=== PATIENT | female | born 1965 | race African-American/Black ===

== ENCOUNTER 2017-02-02 19:10 | Emergency (ER) | payer OTHER ==
[2017-02-02 19:15] VITALS: BP 159/87; PULSE 89; TEMP 98; BMI 37.3
[2017-02-02] MEDS ORDERED: NAPROXEN 500 MG TABLET (FP) PO ONE (19:39)
--- NOTE | 2017-02-02 19:46 | PDOC ---
History of Present Illness - General Chief Complaint: Pain Stated Complaint: LEG PAIN Time Seen by Provider: 02/02/17 19:33 History Source: Patient Exam Limitations: No Limitations - History of Present Illness Initial Comments: 02/02/17 19:38 51 yr female histoy of HTN states she was walking down the steps yesterday and her right knee "gave out" causing pain. Pt has had pain and tightness to calf and behind the knee today with knee pain. 02/02/17 19:47 Past History - Past Medical History Allergies/Adverse Reactions: Allergies Allergy/AdvReac Type Severity Reaction Status Date / Time No Known Allergies Allergy Verified 02/02/17 19:12 Home Medications: Ambulatory Orders Cholecalciferol (Vitamin D3) [Vitamin D] 5,000 unit PO DAILY 01/08/13 Flaxseed Oil 1,000 mg PO DAILY 01/08/13 Iron Polysaccharide Complex [Iferex 150] 150 mg PO DAILY 01/08/13 Multivitamin [Multivitamins] 1 each PO DAILY 01/08/13 Losartan/Hydrochlorothiazide [Losartan-Hctz 50-12.5 mg Tab] 1 each PO ASDIR 03/13 Naproxen [Naprosyn -] 500 mg PO BID PRN #14 tablet 02/02/17 Anemia: Yes Asthma: No Cancer: No Cardiac Disorders: No CVA: No COPD: No CHF: No Dementia: No Diabetes: No GI Disorders: No Disorders: No HTN: Yes Hypercholesterolemia: No Liver Disease: No Seizures: No Thyroid Disease: No - Surgical History Abdominal Surgery: Yes (GASTRIC BYPASS-APPROX 1999) Appendectomy: No Cardiac Surgery: No Cholecystectomy: No Lung Surgery: No Neurologic Surgery: No Orthopedic Surgery: Yes (LIGAMENT LEFT FOOT REPAIRED) - Psycho/Social/Smoking Cessation Hx Anxiety: No Suicidal Ideation: No Smoking Status: No Smoking History: Never smoked Have you smoked in the past 12 months: No Number of Cigarettes Smoked Daily: 0 Information on smoking cessation initiated: No Hx Alcohol Use: No Drug/Substance Use Hx: No Substance Use Type: Alcohol Hx Substance Use Treatment: No Review of Systems - Review of Systems Able to Perform ROS?: Yes Is the patient limited Kuwaiti proficient: No Constitutional: No: Symptoms Reported Musculoskeletal: Yes: Symptoms Reported *Physical Exam - Vital Signs Last Vital Signs Temp Pulse Resp BP Pulse Ox 98 F 89 18 159/87 100 02/02/17 19:12 02/02/17 19:12 02/02/17 19:12 02/02/17 19:12 02/02/17 19:12 - Physical Exam General Appearance: Yes: Nourished, Appropriately Dressed, Obese HEENT: positive: EOMI, DEVONTE Neck: positive: Supple. negative: Tender Respiratory/Chest: positive: Lungs Clear, Normal Breath Sounds Cardiovascular: positive: Regular Rhythm, Regular Rate Extremity: positive: Normal Capillary Refill, Normal Range of Motion, Tender ( popliteal right knee , mild ttp proximal calf , neg bony tenderness ) Integumentary: positive: Normal Color, Dry, Warm Neurologic: positive: Fully Oriented, Alert, Normal Mood/Affect, Normal Response , Motor Strength 10/29 ED Treatment Course - RADIOLOGY Radiology Studies Ordered: Category Date Time Status KNEE 3 POS-RIGHT [RAD] Stat Radiology 02/02/17 19:37 Ordered DUPLEX VASCUL US-1 LEG [US] Stat Ultrasound 02/02/17 19:37 Ordered Medical Decision Making - Medical Decision Making 02/02/17 19:40 cc: knee pain , calf tightness and apin after knee "gave out" while walking down the stairs yesterday pt states the knee continues to cause pain will get xray to r/o dislocation US to r/o DVT or bakers cyst will give naproysn for pain 02/02/17 19:47 *DC/Admit/Observation/Transfer Diagnosis at time of Disposition: Strain of knee and leg, right Qualifiers: Encounter type: initial encounter Qualified Code(s): S86.911A - Strain of unspecified muscle(s) and tendon(s) at lower leg level, right leg, initial encounter - Discharge Dispostion Disposition: HOME Condition at time of disposition: Stable - Prescriptions Prescriptions: Naproxen [Naprosyn -] 500 mg PO BID PRN #14 tablet PRN Reason: Pain - Referrals Referrals: Martin Olson MD [Primary Care Provider] - - Patient Instructions Additional Instructions: follow with the orthopedist or for follow up in one week apply frequent warm compresses to the back of the knee take naprosyn as directed for pain - Post Discharge Activity Work/School Note: Back to Work
[2017-02-02] MEDS ORDERED: NAPROXEN 500 MG TABLET (FP) ONE (20:04)
--- NOTE | 2017-02-02 20:29 | PDOC ---
*Physical Exam - Vital Signs Last Vital Signs Temp Pulse Resp BP Pulse Ox 98 F 89 18 159/87 100 02/02/17 19:12 02/02/17 19:12 02/02/17 19:12 02/02/17 19:12 02/02/17 19:12 ED Treatment Course - Medications Given in the ED: ED Medications Discontinued Medications Generic Name Dose Route Start Last Admin Trade Name Freq PRN Reason Stop Dose Admin Naproxen 500 mg 02/02/17 19:39 02/02/17 20:05 Naprosyn - PO 02/02/17 19:40 500 mg ONCE ONE Administration Medical Decision Making - Medical Decision Making 02/02/17 20:24 asked by OSKAR Faye to follow US and Knee xray= no DVT; No *DC/Admit/Observation/Transfer Diagnosis at time of Disposition: Strain of right knee and leg Qualifiers: Encounter type: initial encounter Qualified Code(s): S86.911A - Strain of unspecified muscle(s) and tendon(s) at lower leg level, right leg, initial encounter - Discharge Dispostion Disposition: HOME Condition at time of disposition: Stable Admit: No - Prescriptions Prescriptions: Naproxen [Naprosyn -] 500 mg PO BID PRN #14 tablet PRN Reason: Pain - Referrals Referrals: Martin Olson MD [Primary Care Provider] - - Patient Instructions Additional Instructions: follow with the orthopedist or for follow up in one week apply frequent warm compresses to the back of the knee take naprosyn as directed for pain - Post Discharge Activity Work/School Note: Back to Work
== END 2017-02-02 20:37 | disposition home or self-care (01) ==
LOC: JERFT 19:10
DX: S86.911A Strain of unspecified muscle(s) and tendon(s) at lower leg level, right leg, initial encounter (principal)
CPT/HCPCS: 73562-TC-RT; 93971-TC; 99281-25

== ENCOUNTER 2017-02-08 08:36 | Emergency (ER) | payer OTHER ==
[2017-02-08 08:47] VITALS: TEMP 98.3; BMI 40.1
[2017-02-08 09:47] LABS: EOSINOPHIL 3.3 % (0-4.5); MCH 25.9 pg (25.7-33.7); MCHC 31.8 g/dl (32.0-36.0); MEAN CELL VOLUME 81.4 fl (80-96); MEAN PLT VOLUME 7.4 fl (7.5-11.1); NEUTROPHILS 56.6 % (42.8-82.8); PLATELET COUNT 356 K/MM3 (134-434); RDW 16.6 % (11.6-15.6); WHITE BLOOD COUNT 8.4 K/mm3 (4.0-10.0)
[2017-02-08 10:07] LABS: INR 1.07 (0.82-1.09); PROTHROMBIN TIME (PATIENT) 11.8 SEC (9.98-11.88)
[2017-02-08 10:21] LABS: ALBUMIN 3.4 g/dl (3.4-5.0); ANION GAP 7 (8-16); CALCIUM 8.8 mg/dL (8.5-10.1); CO2 29 mmol/L (21-32); CREATININE 0.8 mg/dL (0.55-1.02); GLUCOSE,RANDOM 82 mg/dL (74-106); SGOT/AST 11 U/L (15-37); SGPT/ALT 24 U/L (12-78)
[2017-02-08] MEDS ORDERED: KETOROLAC TROMETHAMINE 15 MG/ML VIAL IVPUSH ONE (10:22)
[2017-02-08 10:28] LABS: ALK PHOS 123 U/L (45-117); BILIRUBIN,TOTAL 0.3 mg/dL (0.2-1.0); CPK 154 IU/L (26-192); TOT PROT 6.7 g/dl (6.4-8.2); TROPONIN I < 0.02 ng/ml (0.00-0.05)
--- NOTE | 2017-02-08 11:02 | PDOC ---
History of Present Illness <Susy Sal - Last Filed: 02/08/17 11:22> <Jonah Leavitt - Last Filed: 02/08/17 14:33> - General Chief Complaint: Chest Pain Stated Complaint: CHEST PAIN Time Seen by Provider: 02/08/17 09:45 - History of Present Illness Initial Comments: 02/08/17 10:57 "The patient is a year old 51 year old female, with a significant past medical history of hypertension, who presents to the emergency department with sudden onset chest pain since last night around 12am. Patient reports that pain is exacerbated by movement. She describes her chest pain as sharp and states that it does not radiate. She rates her pain 8/10. She states she did not take any medication to relieve the pain. She denies similar symptoms in the past. No recent travel/immobilization. No leg swelling. No h/o DVT/PE. She denies numbness, tingling. She denies shortness of breath.She denies recent fevers, chills, headache or dizziness. She denies recent nausea, vomit, diarrhea or constipation. She denies recent dysuria, frequency, urgency or hematuria. Allergies: NKA Past surgical history: Gastric bypass 10 years ago, benign breast mass removal, left ankle surgery(1.5 years ago). Social history: Nonsmoker. Denies EtOH use and recreational drug use. Family History:paternal hypertension. [place] (aunt at 60yrs). " (DagmarJonah) Past History <Susy Sal - Last Filed: 02/08/17 11:22> - Past Medical History Anemia: Yes Asthma: No Cancer: No Cardiac Disorders: No CVA: No COPD: No CHF: No Dementia: No Diabetes: No GI Disorders: No Disorders: No HTN: Yes Hypercholesterolemia: No Liver Disease: No Seizures: No Thyroid Disease: No - Surgical History Abdominal Surgery: Yes (GASTRIC BYPASS-APPROX 1999) Appendectomy: No Cardiac Surgery: No Cholecystectomy: No Lung Surgery: No Neurologic Surgery: No Orthopedic Surgery: Yes (LIGAMENT LEFT FOOT REPAIRED) - Psycho/Social/Smoking Cessation Hx Anxiety: No Suicidal Ideation: No Smoking Status: No Smoking History: Never smoked Have you smoked in the past 12 months: No Number of Cigarettes Smoked Daily: 0 Information on smoking cessation initiated: No Hx Alcohol Use: No Drug/Substance Use Hx: No Substance Use Type: Alcohol Hx Substance Use Treatment: No <Jonah Leavitt - Last Filed: 02/08/17 14:33> - Past Medical History Allergies/Adverse Reactions: Allergies Allergy/AdvReac Type Severity Reaction Status Date / Time No Known Allergies Allergy Verified 02/08/17 08:44 Home Medications: Ambulatory Orders Cholecalciferol (Vitamin D3) [Vitamin D] 5,000 unit PO DAILY 01/08/13 Flaxseed Oil 1,000 mg PO DAILY 01/08/13 Iron Polysaccharide Complex [Iferex 150] 150 mg PO DAILY 01/08/13 Multivitamin [Multivitamins] 1 each PO DAILY 01/08/13 Losartan/Hydrochlorothiazide [Losartan-Hctz 50-12.5 mg Tab] 1 each PO ASDIR 03/13 Naproxen [Naprosyn -] 500 mg PO BID PRN #14 tablet 02/02/17 Cardiac Specific PMH - Complaint Specific PMHX Pacemaker: No <DagmarJonah - Last Filed: 02/08/17 14:33> Review of Systems <Susy Sal - Last Filed: 02/08/17 11:22> <DagmarJonah - Last Filed: 02/08/17 14:33> - Review of Systems Comments:: 02/08/17 10:59 "GENERAL/CONSTITUTIONAL: No fever or chills. No weakness. HEAD, EYES, EARS, NOSE AND THROAT: No change in vision. No ear pain or discharge. No sore throat. GASTROINTESTINAL: No nausea, vomiting, diarrhea or constipation. GENITOURINARY: No dysuria, frequency, or change in urination. CARDIOVASCULAR: +chest pain. No shortness of breath. RESPIRATORY: No cough, wheezing, or hemoptysis. MUSCULOSKELETAL: No joint or muscle swelling or pain. No neck or back pain. SKIN: No rash NEUROLOGIC: No headache, vertigo, loss of consciousness, or change in strength/ sensation. ENDOCRINE: No increased thirst. No abnormal weight change. HEMATOLOGIC/LYMPHATIC: No anemia, easy bleeding, or history of blood clots. ALLERGIC/IMMUNOLOGIC: No hives or skin allergy. " (Jonah Leavitt) - Vital Signs Last Vital Signs Temp Pulse Resp BP Pulse Ox 98.3 F 87 18 149/76 100 02/08/17 08:44 02/08/17 08:44 02/08/17 08:44 02/08/17 08:44 02/08/17 09:40 Heart Score/ECG Review <OjnelleSusy vu - Last Filed: 02/08/17 11:22> - History History: Slightly suspicious - Electrocardiogram EKG: Non specific repolarization disturbance - Age Age: 45-65 - Risk Factors Risk Factors Heart Score: Yes Hx Hypertension Based on the list above the patient has:: 1-2 risk factors - Troponin Troponin: </= normal limit - Score Heart Score - Total: 3 <Jonah Leavitt - Last Filed: 02/08/17 14:33> - ECG Impressions Comment:: 02/08/17 11:00 no BRADY, sub-mm STDs in inferior leads. TWI inferiorly. Intervals wnl. Rate 83 ( Jonah Leavitt) ED Treatment Course - LABORATORY CBC & Chemistry Diagram: 02/08/17 09:35 02/08/17 09:35 <Susy Sal - Last Filed: 02/08/17 11:22> - LABORATORY CBC & Chemistry Diagram: 02/08/17 09:35 02/08/17 09:35 <Jonah Leavitt - Last Filed: 02/08/17 14:33> - ADDITIONAL ORDERS Additional order review: Laboratory Results 02/08/17 02/08/17 02/08/17 13:00 09:35 09:35 INR 1.07 Sodium 140 Potassium 3.9 Chloride 104 Carbon Dioxide 29 Anion Gap 7 L BUN 16 D Creatinine 0.8 D Creat Clearance w eGFR > 60 Random Glucose 82 Calcium 8.8 Total Bilirubin 0.3 D AST 11 L D ALT 24 Alkaline Phosphatase 123 H D Creatine Kinase 151 154 Creatine Kinase Index 1.0 CK-MB (CK-2) 1.715 Troponin I < 0.02 < 0.02 Total Protein 6.7 Albumin 3.4 02/08/17 09:35 RBC 4.03 MCV 81.4 MCHC 31.8 L RDW 16.6 H MPV 7.4 L Neutrophils % 56.6 Lymphocytes % 31.6 Monocytes % 7.5 Eosinophils % 3.3 Basophils % 1.0 - RADIOLOGY Radiology Studies Ordered: Category Date Time Status CHEST PA & LAT [RAD] Stat Radiology 02/08/17 09:29 Completed Radiograph Interpretation: 02/08/17 11:21 Chest X-Ray Reported by Dr. Arcenio Meek Impression: No acute pathology. No significant change. (Susy Sal) - Medications Given in the ED: ED Medications Discontinued Medications Generic Name Dose Route Start Last Admin Trade Name Rosanne PRN Reason Stop Dose Admin Ketorolac Tromethamine 15 mg 02/08/17 10:22 02/08/17 11:22 Toradol Injection - IVPUSH 02/08/17 10:23 15 mg ONCE ONE Administration Medical Decision Making <Susy Sal - Last Filed: 02/08/17 11:22> <Jonah Leavitt - Last Filed: 02/08/17 14:33> - Medical Decision Making 02/08/17 11:00 51 F with atypical chest pain. Likely msk as pain is in chest wall and reproducible with palpation. EKG with TWIs inferiorly, but pt's story not concerning for ACS. Will r/o with serial troponins. HEART score is 3, making pt low risk for MACE. PE unlikely as wells score is 0. - Labs, trop - CXR 02/08/17 14:16 Trop negative x2 pt reassessed - states she feels much better with toradol. Will DC home with cards f/u. (Jonah Leavitt) *DC/Admit/Observation/Transfer <Susy Sal - Last Filed: 02/08/17 11:22> - Discharge Dispostion Admit: No <Jonah Leavitt - Last Filed: 02/08/17 14:33> Diagnosis at time of Disposition: Chest pain - Referrals Referrals: Martin Olson MD [Primary Care Provider] - Srinivas Cook MD [Staff Physician] - - Patient Instructions Printed Discharge Instructions: DI for Atypical Chest Pain Additional Instructions: Call the number provided to make an appointment with cardiology clinic within 1 month. You must follow up with a donation worker regarding your abnormal EKG. This could represent heart disease, which, if left untreated, could result in serious illness, disability, or . - Post Discharge Activity Work/School Note: Back to Work - Attestations Scribe Attestion: 02/08/17 11:22 Documentation prepared by Susy Sal, acting as medical chief technician for Jonah Leavitt MD. (Susy Sal) Physician Attestion: 02/08/17 14:19 I, Dr. Jonah Leavitt MD, attest that this document has been prepared under my direction and personally reviewed by me in its entirety. I further attest, that it accurately reflects all work, treatment, procedures and medical decision -making performed by me. (Jonah Leavitt)
--- NOTE | 2017-02-08 11:10 | EKG ---
Test Reason : Blood Pressure : / mmHG Vent. Rate : 083 BPM Atrial Rate : 083 BPM P-R Int : 156 ms QRS Dur : 106 ms QT Int : 388 ms P-R-T Axes : 058 055 004 degrees QTc Int : 455 ms NORMAL SINUS RHYTHM POSSIBLE LEFT ATRIAL ENLARGEMENT .INCOMPLETE RBBB NONSPECIFIC ST AND T WAVE ABNORMALITY ABNORMAL ECG WHEN COMPARED WITH ECG OF 08-JUL-2011 10:18, ST-T ABNORMALITIES IN III aVF REPEAT EKG IF CLINICALLY INDICATED Confirmed by FELICITA LUDWIG MD ([id number]) on 02/08/2017 11:10:04 AM Referred By: Confirmed By:FELICITA LUDWIG MD
[2017-02-08] MEDS ORDERED: KETOROLAC TROMETHAMINE 15 MG/ML VIAL ONE (11:40)
[2017-02-08 13:35] LABS: CPK 151 IU/L (26-192); TROPONIN I < 0.02 ng/ml (0.00-0.05)
[2017-02-08 14:39] VITALS: BP 137/74; PULSE 75
== END 2017-02-08 14:40 | disposition home or self-care (01) ==
LOC: JER 08:36
PROC: 3E0333Z Introduction of Anti-inflammatory into Peripheral Vein, Percutaneous Approach (ICD-10-PCS; principal; 2017-02-08)
DX: R07.9 Chest pain, unspecified (principal); I10 Essential (primary) hypertension; D64.9 Anemia, unspecified; Z98.84 Bariatric surgery status
CPT/HCPCS: 36415; 71020-TC; 80053; 82553; 84484; 85025; 85610; 93005; 93010; 99283-25

== ENCOUNTER 2017-07-23 23:10 | Emergency (ER) | payer OTHER ==
[2017-07-23 23:30] VITALS: BP 141/78; PULSE 92; TEMP 98.4; BMI 40.1
--- NOTE | 2017-07-24 01:04 | PDOC ---
History of Present Illness - General Chief Complaint: Pain Stated Complaint: C/O LOWER EXTREMITY CRAMPING Time Seen by Provider: 07/24/17 00:26 - History of Present Illness Initial Comments: 07/24/17 06:35 hx of htn c/o leg cramps intermittently x months Timing/Duration: intermittent, other (x months) Severity: moderate Modifying Factors: improves with: medication Associated Symptoms: denies: fever/chills, nausea/vomiting Past History - Past Medical History Allergies/Adverse Reactions: Allergies Allergy/AdvReac Type Severity Reaction Status Date / Time No Known Allergies Allergy Verified 02/08/17 08:44 Home Medications: Ambulatory Orders Naproxen [Naprosyn -] 500 mg PO BID PRN #14 tablet 02/02/17 Diltiazem HCl [Diltiazem ER] 360 mg PO DAILY 07/23/17 Potassium Chloride 20 meq PO BID 07/23/17 Valsartan/Hydrochlorothiazide [Valsartan-Hctz 320-25 mg Tab] 1 each PO DAILY Anemia: Yes Asthma: No Cancer: No Cardiac Disorders: No CVA: No COPD: No CHF: No Dementia: No Diabetes: No GI Disorders: No Disorders: No HTN: Yes Hypercholesterolemia: No Liver Disease: No Seizures: No Thyroid Disease: No - Surgical History Abdominal Surgery: Yes (GASTRIC BYPASS-APPROX 1999) Appendectomy: No Cardiac Surgery: No Cholecystectomy: No Lung Surgery: No Neurologic Surgery: No Orthopedic Surgery: Yes (LIGAMENT LEFT FOOT REPAIRED) - Suicide/Smoking/Psychosocial Hx Smoking Status: No Smoking History: Never smoked Have you smoked in the past 12 months: No Number of Cigarettes Smoked Daily: 0 Hx Alcohol Use: No Drug/Substance Use Hx: No Substance Use Type: Alcohol Hx Substance Use Treatment: No Review of Systems - Review of Systems Able to Perform ROS?: Yes All Other Systems: Reviewed and Negative *Physical Exam - Vital Signs Last Vital Signs Temp Pulse Resp BP Pulse Ox 98.4 F 92 H 18 141/78 98 07/23/17 23:23 07/23/17 23:23 07/23/17 23:23 07/23/17 23:23 07/23/17 23:23 - Physical Exam General Appearance: Yes: Nourished HEENT: positive: Normal Voice Neck: negative: Tender Respiratory/Chest: positive: Lungs Clear Cardiovascular: positive: Regular Rhythm Gastrointestinal/Abdominal: positive: Normal Bowel Sounds Lymphatic: negative: Adenopathy Musculoskeletal: positive: Normal Inspection Extremity: positive: Normal Capillary Refill Integumentary: positive: Normal Color Neurologic: positive: Fully Oriented, Alert, Motor Strength 10/29 ED Treatment Course - LABORATORY CBC & Chemistry Diagram: 07/24/17 00:25 Medical Decision Making - Medical Decision Making 07/24/17 06:52 cramps lytes ok ? secondary to dehydration (prerenal azotemia noted) Po hydration *DC/Admit/Observation/Transfer Diagnosis at time of Disposition: Muscle spasm - Discharge Dispostion Disposition: HOME Condition at time of disposition: Stable - Referrals - Patient Instructions Printed Discharge Instructions: Stretching Exercises Additional Instructions: Motrin (ibuprofen) as needed for pain - Post Discharge Activity
[2017-07-24 01:23] LABS: ANION GAP 5 (8-16); BLOOD UREA NITROGEN 23 mg/dL (7-18); CHLORIDE 102 mmol/L (98-107); CO2 32 mmol/L (21-32); CREATININE 0.7 mg/dL (0.55-1.02); GLUCOSE,RANDOM 130 mg/dL (74-106); PHOSPHOROUS 4.8 mg/dL (2.5-4.9); POTASSIUM 3.7 mmol/L (3.5-5.1); SODIUM 139 mmol/L (136-145)
== END 2017-07-24 01:06 | disposition home or self-care (01) ==
LOC: FER 23:10
DX: M62.838 Other muscle spasm (principal); I10 Essential (primary) hypertension; Z98.84 Bariatric surgery status; D64.9 Anemia, unspecified
CPT/HCPCS: 36415; 80048; 83735; 84100; 99282-25

== ENCOUNTER 2018-12-07 17:31 | Observation (INO) | payer OTHER ==
--- NOTE | 2018-12-07 18:18 | PDOC ---
History of Present Illness - General Chief Complaint: Chest Pain Stated Complaint: CHEST PAIN Time Seen by Provider: 12/07/18 18:18 History Source: Patient Exam Limitations: No Limitations - History of Present Illness Initial Comments: 12/07/18 18:32 53 year old female with PMH HTN, HLD, obesity presented to ED for chest pain x2 hours. Pt reported she was sitting down when her pain began, was constant, pressure like, non-radiating, no alleviating or aggravating factors, occurring after eating a hamburger at [employer] [place]. Pt denied nausea, vomiting, diarrhea, abdominal pain, shortness of breath, cough, fever, lightheadedness, palpitations. Pt reported chest pain subsided on its own while she was having her EKG performed in triage. Family cardiac history Father - stents in 70s, cardiac arrest and in 70s Mother - denied MT Siblings - denied MT Past surgical history - gastric bypass x12 years ago Paper Sales Representative - none PCP - Wesley Past History - Past Medical History Allergies/Adverse Reactions: Allergies Allergy/AdvReac Type Severity Reaction Status Date / Time No Known Allergies Allergy Verified 12/07/18 18:17 Home Medications: Ambulatory Orders Naproxen [Naprosyn -] 500 mg PO BID PRN #14 tablet 02/02/17 Diltiazem HCl [Diltiazem ER] 360 mg PO DAILY 07/23/17 Potassium Chloride 20 meq PO BID 07/23/17 Valsartan/Hydrochlorothiazide [Valsartan-Hctz 320-25 mg Tab] 1 each PO DAILY Anemia: Yes Asthma: No Cancer: No Cardiac Disorders: No CVA: No COPD: No CHF: No Dementia: No Diabetes: No GI Disorders: No Disorders: No HTN: Yes Hypercholesterolemia: No Liver Disease: No Seizures: No Thyroid Disease: No - Surgical History Abdominal Surgery: Yes (GASTRIC BYPASS-APPROX 1999) Appendectomy: No Cardiac Surgery: No Cholecystectomy: No Lung Surgery: No Neurologic Surgery: No Orthopedic Surgery: Yes (LIGAMENT LEFT FOOT REPAIRED) - Suicide/Smoking/Psychosocial Hx Smoking Status: No Smoking History: Never smoked Have you smoked in the past 12 months: No Number of Cigarettes Smoked Daily: 0 Hx Alcohol Use: No Drug/Substance Use Hx: No Substance Use Type: Alcohol Hx Substance Use Treatment: No Review of Systems - Review of Systems Able to Perform ROS?: Yes Comments:: 12/07/18 18:34 General: denied fever, chills, generalized weakness. HEENT: denied sore throat, rhinorrhea, ear pain. Heart: admitted to chest pain. denied palpitations, syncope, diaphoresis. Respiratory: denied shortness of breath, cough, sputum production, hemoptysis. Abdomen: denied abdominal pain, nausea, vomiting, diarrhea, constipation, blood in stool. : denied dysuria, increased urinary frequency, hematuria, urinary incontinence , flank pain. Back: denied back pain. Musculoskeletal: denied joint pain, muscle pain, joint swelling. Neurological: denied headache, dizziness, numbness, tingling, weakness. Skin: denied rash, laceration, abrasion. *Physical Exam - Physical Exam Comments: 12/07/18 18:34 Constitutional: Well-nourished, Well-developed, appearing stated age. obese. HEENT: head is normocephalic, atraumatic. EOMI. PERRLA. Neck: supple. Full ROM. Heart: regular rhythm. no murmurs, rubs or gallops. Lungs: clear to auscultation bilaterally. no crackles, rhonchi or wheezing. no stridor. Abdomen: soft, nontender. normal bowel sounds. no rebound, guarding, masses. Extremities: peripheral pulses intact. no lower extremity edema. Neurological: CN 2-12 grossly intact. moves all four extremities. Psych: awake, alert, oriented x3. follows commands. answers questions appropriately. Heart Score/ECG Review - History History: Moderately suspicious - Electrocardiogram EKG: Non specific repolarization disturbance - Age Age: 45-65 - Risk Factors Risk Factors Heart Score: Yes Hx Hypercholesterolemia, Yes Hx Hypertension, Yes Hx Obesity Based on the list above the patient has:: >/=3 risk factors or Hx atherosclerotic disease - Troponin Troponin: </= normal limit - Score Heart Score - Total: 5 ED Treatment Course - LABORATORY CBC & Chemistry Diagram: 12/07/18 18:29 12/07/18 18:29 Medical Decision Making - Medical Decision Making 12/07/18 18:34 53 year old female with above PMH presented to ED for chest pain. Initial Vital Signs Temp Pulse Resp BP Pulse Ox 98.2 F 83 17 152/73 96 12/07/18 18:18 12/07/18 18:18 12/07/18 18:18 12/07/18 18:18 12/07/18 18:18 Afebrile. No tachycardia. No tachypnea. Hypertensive. No hypoxia on room air. Labs ordered: CBC, CMP, troponin, BNP Imaging ordered: CXR Medications ordered: ASA 162 PO chew once EKG performed at 1727: rate 90, regular rhythm, normal axis, QRS 112, RBBB, flipped T with ST depression in III, aVF. Similar to prior EKG performed 01/2017. 12/07/18 18:52 CBC WBC 11.3 K/mm3 (4.0-10.0) H 12/07/18 18:29 RBC 4.42 M/mm3 (3.60-5.2) 12/07/18 18:29 Hgb 11.7 GM/dL (10.7-15.3) 12/07/18 18:29 Hct 36.8 % (32.4-45.2) 12/07/18 18:29 MCV 83.3 fl (80-96) 12/07/18 18:29 MCH 26.5 pg (25.7-33.7) 12/07/18 18:29 MCHC 31.8 g/dl (32.0-36.0) L 12/07/18 18:29 RDW 16.3 % (11.6-15.6) H 12/07/18 18:29 Absolute Neuts (auto) 6.3 K/mm3 (1.5-8.0) 12/07/18 18:29 Neutrophils % 55.8 % (42.8-82.8) 12/07/18 18:29 Lymphocytes % 34.8 % (8-40) 12/07/18 18:29 Monocytes % 5.7 % (3.8-10.2) 12/07/18 18:29 Eosinophils % 3.0 % (0-4.5) 12/07/18 18:29 Basophils % 0.7 % (0-2.0) 12/07/18 18:29 Nucleated RBC % 0 % (0-0) 12/07/18 18:29 Leukocytosis with no left shift. No anemia. 12/07/18 19: CMP Sodium 139 mmol/L (136-145) 12/07/18 18:29 Potassium 3.9 mmol/L (3.5-5.1) 12/07/18 18:29 Chloride 101 mmol/L (98-107) 12/07/18 18:29 Carbon Dioxide 31 mmol/L (21-32) 12/07/18 18:29 Anion Gap 6 MMOL/L (8-16) L 12/07/18 18:29 BUN 16.2 mg/dL (7-18) 12/07/18 18:29 Creatinine 0.8 mg/dL (0.55-1.3) 12/07/18 18:29 Est GFR (CKD-EPI)AfAm 97.55 12/07/18 18:29 Est GFR (CKD-EPI)NonAf 84.17 12/07/18 18: Random Glucose 115 mg/dL (74-106) H 12/07/18 18: Calcium 9.3 mg/dL (8.5-10.1) 12/07/18 18: Total Bilirubin 0.3 mg/dL (0.2-1) 12/07/18 18:29 AST 16 U/L (15-37) 12/07/18 18:29 ALT 37 U/L (13-61) 12/07/18 18:29 Alkaline Phosphatase 142 U/L (45-117) H 12/07/18 18: Troponin I < 0.02 ng/ml (0.00-0.05) 12/07/18 18: B-Natriuretic Peptide 13.0 pg/ml (5-125) 12/07/18 18: Total Protein 7.5 g/dl (6.4-8.2) 12/07/18 18: Albumin 3.7 g/dl (3.4-5.0) 12/07/18 18:29 Serum , Qual Negative 12/07/18 18:29 No electrolyte abnormalities. No STELLA. Troponin undetectable. No BNP eloevation. Serum test negative. Pt to be admitted for chest pain - obs. Pending admission. 12/07/18 19:25 Pt reassessed, reported no recurrence of pain. Result explained to patient and need for observation. Pt expressed understanding and agreed with plan for care. Pending admission. *DC/Admit/Observation/Transfer Diagnosis at time of Disposition: Chest pain - Discharge Dispostion Condition at time of disposition: Stable Decision to Admit order: Yes - Referrals - Patient Instructions - Post Discharge Activity Imaging - Results Chest X-ray: Image Reviewed (HISTORY PROVIDED: Chest pain. A single frontal portable projection of the chest at 6:39 PM is submitted. The heart size is within normal limits. The lung baker are free of pulmonary infiltrates or pleural effusions. There is tortuosity and calcification of the thoracic aorta and degenerative changes of the thoracic spine. IMPRESSION: No acute disease. Reported By: Lino Freire MD 12/07/18 2358)
[2018-12-07] MEDS ORDERED: ASPIRIN 81 MG CHEWABLE TABLETS PO ONE (18:32)
[2018-12-07] MEDS ORDERED: FAMOTIDINE 20 MG/50 ML IVPB 20 MG/50 ML MG IVPB ONE ×2 (18:37→18:39)
[2018-12-07] MEDS ORDERED: MAG HYDROX/AL HYDROX/SIMETH 30 ML UNIT-DOSE CUP PO ONE (18:37)
[2018-12-07] MEDS ORDERED: ASPIRIN 81 MG CHEWABLE TABLETS ONE (18:38)
[2018-12-07 18:42] LABS: BASO % 0.7 % (0-2.0); HEMATOCRIT 36.8 % (32.4-45.2); HEMOGLOBIN 11.7 GM/dL (10.7-15.3); LYMPH % 34.8 % (8-40); MCH 26.5 pg (25.7-33.7); MCHC 31.8 g/dl (32.0-36.0); MEAN CELL VOLUME 83.3 fl (80-96); MONO % 5.7 % (3.8-10.2); NEUT % 55.8 % (42.8-82.8); RBC 4.42 M/mm3 (3.60-5.2); RDW 16.3 % (11.6-15.6); WHITE BLOOD COUNT 11.3 K/mm3 (4.0-10.0)
[2018-12-07 18:55] LABS: INR 1.03 (0.83-1.09); PROTHROMBIN TIME (PATIENT) 12.2 SEC (9.7-13.0)
[2018-12-07] MEDS ORDERED: MAG HYDROX/AL HYDROX/SIMETH 30 ML UNIT-DOSE CUP ONE (19:03)
--- NOTE | 2018-12-07 19:04 | PDOC ---
Documentation entered by Yuliet Moulton SCRIBE, acting as scribe for Katherin Zavala DO. Katherin Zavala, DO: This documentation has been prepared by the Kenney knox Mackenzie, SCRIBE, under my direction and personally reviewed by me in its entirety. I confirm that the documentation accurately reflects all work , treatment, procedures, and medical decision making performed by me. Attending Attestation - Resident Resident Name: Latanya Poe - ED Attending Attestation I have performed the following: I have examined & evaluated the patient, The case was reviewed & discussed with the resident, I agree w/resident's findings & plan, Exceptions are as noted - HPI HPI: The patient is a 53 year old female, with a significant PMH of HTN HLD and obesity who presents to the emergency department with chest pain lasting for the past 2 hours. Patient states the chest pain started after eating a burger before coming in to the ED. Patient describes the chest pain as a localized substernal pressure like sensation. Family history is pertinent for paternal NV last week. The patient denies, shortness of breath, headache and dizziness. Denies fever, chills, nausea, vomiting, diarrhea and constipation. Denies dysuria, frequency, urgency and hematuria. Allergies: NKA Social history: None reported Family history: Paternal NV 12/07/18 19:12 - Physicial Exam PE: GENERAL: Awake, alert, and fully oriented, in no acute distress HEAD: No signs of trauma EYES: PERRLA, EOMI, sclera anicteric, conjunctiva clear ENT: Auricles normal inspection, hearing grossly normal, nares patent, oropharynx clear without exudates. Moist mucosa NECK: Normal ROM, supple, no lymphadenopathy, JVD, or masses LUNGS: Breath sounds equal, clear to auscultation bilaterally. No wheezes, and no crackles HEART: Regular rate and rhythm, normal S1 and S2, no murmurs, rubs or gallops ABDOMEN: Soft, nontender, normoactive bowel sounds. No guarding, no rebound. No masses EXTREMITIES: (+) Trace pitting edema at both ankles. Normal range of motion, No clubbing or cyanosis. No cords, erythema, or tenderness NEUROLOGICAL: Cranial nerves II through XII grossly intact. Normal speech, normal gait SKIN: Warm, Dry, normal turgor, no rashes or lesions noted. 12/07/18 19:14 - Medical Decision Making 12/07/18 19:02 I, Dr. Katherin Zavala, DO, attest that this document has been prepared under my direction and personally reviewed by me in its entirety. I further attest, that it accurately reflects all work, treatment, procedures and medical decision -making performed by me. 12/07/18 19:04 a/p: 53yo female with hx of htn and hld (no longer on hld meds since gastric bypass sx) with 2 hours of cp today -pain after eating, but pain was different from acid reflux or gerd -pt states 2 hours of substernal pressure - no radiation, no nausea, no sob, no diaphoresis -fam hx of father with cardiac arrest 2 weeks ago -pt with hx of htn -has never seen cards -pain currently resolved -no abd pain -no vomiting -will send labs, ekg, cxr -will give asa PMD Dr. Olson 12/07/18 19:43 trop negative cxr clear asa given case discussed with OSKAR Holguin - accepts pt to obs under Dr. Olson Heart Score/ECG Review - History History: Moderately suspicious - Electrocardiogram EKG: Non specific repolarization disturbance - Age Age: 45-65 - Risk Factors Risk Factors Heart Score: Yes Hx Hypertension, Yes Positive family hx of cardiac disease Based on the list above the patient has:: 1-2 risk factors - ECG Intrepretation Comment:: 12/07/18 19:02 sinus at 90, rbbb, lvh, st depression with t 2wave inversions III and avf, incomplete rbbb, lvh, unchnaged from prior ekg jan 2017
[2018-12-07 19:18] LABS: ALBUMIN 3.7 g/dl (3.4-5.0); ALK PHOS 142 U/L (45-117); ANION GAP 6 MMOL/L (8-16); BILIRUBIN,TOTAL 0.3 mg/dL (0.2-1); BLOOD UREA NITROGEN 16.2 mg/dL (7-18); CALCIUM 9.3 mg/dL (8.5-10.1); CHLORIDE 101 mmol/L (98-107); CO2 31 mmol/L (21-32); CREATININE 0.8 mg/dL (0.55-1.3); GLUCOSE,RANDOM 115 mg/dL (74-106); POTASSIUM 3.9 mmol/L (3.5-5.1); SGOT/AST 16 U/L (15-37); SGPT/ALT 37 U/L (13-61); SODIUM 139 mmol/L (136-145); TOT PROT 7.5 g/dl (6.4-8.2)
[2018-12-07 20:03] LABS: MEAN PLT VOLUME 7.4 fl (7.5-11.1); PLATELET COUNT 371 K/MM3 (134-434)
[2018-12-07 20:04] LABS: PLATELET ESTIMATE ADEQUATE
--- NOTE | 2018-12-07 21:02 | HP ---
Admitting History and Physical - Primary Care Physician PCP: Martin Olson - Admission Chief Complaint: Chest Pain History of Present Illness: This is a 53 y/o woman with a PMHx of HTN, HLD, s/p Gastric Bypass (25yrs ago). Who presents to the ED with her family for chest pressure x today. Patient describes the pressure as constant, non-radiating occurred while sitting at her desk after eating a hamburger. The patient reports having right shoulder and arm pain 2 days ago. The patient reports the recent of her father 2 weeks ago- Cardiac Arrest. She has a strong familiar hx of Heart Disease. Patient reports taking her father's Celebrex 6 tabs over the past week for joint pain/ stiffness. Patient denies fever, chills, cough, SOB, palpitations, AP, N/V/D, constipation, dysuria. History Source: Patient Limitations to Obtaining History: No Limitations - Past Medical History Cardiovascular: Yes: HTN, Hyperlipdemia ...LMP: 06/27/11 - Past Surgical History Past Surgical History: Yes: Bariatric Surgery (Gastric Bypass) - Smoking History Smoking history: Never smoked Have you smoked in the past 12 months: No Aproximately how many cigarettes per day: 0 - Alcohol/Substance Use Hx Alcohol Use: No History of Substance Use: reports: None - Social History Usual Living Arrangement: Yes: With Spouse, With Child ADL: Independent History of Recent Travel: No Home Medications - Allergies Allergies/Adverse Reactions: Allergies Allergy/AdvReac Type Severity Reaction Status Date / Time No Known Allergies Allergy Verified 12/07/18 18:17 - Home Medications Home Medications: Ambulatory Orders Olmesartan/Hydrochlorothiazide [Olmesartan-Hctz 40-12.5 mg Tab] 1 each PO DAILY 12/07/18 Telmisartan/Hydrochlorothiazid [Telmisartan-Hctz 80-12.5 mg Tb] 1 each PO DAILY 12/07/18 Home Medications (free text): Telmsartan/HCTZ 80/25mg po daily. Lipitor 20mg po HS. Meds verified with [facility] Family Disease History - Family Disease History Family Disease History: Heart Disease: Father ( cardiac arrest) Review of Systems - Review of Systems Constitutional: reports: No Symptoms Eyes: reports: No Symptoms HENT: reports: No Symptoms Neck: reports: No Symptoms Cardiovascular: reports: Chest Pain, Edema Respiratory: reports: No Symptoms Gastrointestinal: reports: Indigestion Genitourinary: reports: No Symptoms Breasts: reports: No Symptoms Reported Musculoskeletal: reports: No Symptoms Integumentary: reports: No Symptoms Neurological: reports: No Symptoms Endocrine: reports: No Symptoms Hematology/Lymphatic: reports: No Symptoms Psychiatric: reports: No Symptoms Pain Intensity: 0 Physical Examination Vital Signs: Vital Signs Temperature 98.2 F 12/07/18 18:18 Pulse Rate 83 12/07/18 18:18 Respiratory Rate 17 12/07/18 18:18 Blood Pressure 152/73 12/07/18 18:18 O2 Sat by Pulse Oximetry (%) 96 12/07/18 18:18 Constitutional: Yes: Well Nourished, No Distress, Calm, Obese Eyes: Yes: WNL, Conjunctiva Clear, EOM Intact, PERRL HENT: Yes: WNL, Atraumatic, Normocephalic Neck: Yes: WNL, Supple, Trachea Midline Cardiovascular: Yes: WNL, Regular Rate and Rhythm, S1, S2 Respiratory: Yes: WNL, Regular, CTA Bilaterally Gastrointestinal: Yes: WNL, Normal Bowel Sounds, Soft, Abdomen, Obese Renal/: Yes: WNL Breast(s): Yes: WNL Musculoskeletal: Yes: WNL Extremities: Yes: WNL Edema: Yes Edema: LLE: Trace, RLE: Trace Peripheral Pulses WNL: Yes Neurological: Yes: WNL, Alert, Oriented, Cran Nerves II-XII Intact ...Motor Strength: WNL Psychiatric: Yes: WNL, Alert, Oriented Labs: CBC, BMP 12/07/18 18:29 12/07/18 18:29 Laboratory Results - last 24 hr 12/07/18 12/07/18 12/07/18 18:29 18:29 18:29 WBC 11.3 H RBC 4.42 Hgb 11.7 Hct 36.8 MCV 83.3 MCH 26.5 MCHC 31.8 L RDW 16.3 H Plt Count 371 MPV 7.4 L Absolute Neuts (auto) 6.3 Neutrophils % 55.8 Lymphocytes % 34.8 Monocytes % 5.7 Eosinophils % 3.0 Basophils % 0.7 Nucleated RBC % 0 Platelet Estimate Adequate PT with INR 12.20 INR 1.03 Sodium Potassium Chloride Carbon Dioxide Anion Gap BUN Creatinine Est GFR (CKD-EPI)AfAm Est GFR (CKD-EPI)NonAf Random Glucose Calcium Total Bilirubin AST ALT Alkaline Phosphatase Troponin I B-Natriuretic Peptide Total Protein Albumin Serum , Qual Negative 12/07/18 18:29 WBC RBC Hgb Hct MCV MCH MCHC RDW Plt Count MPV Absolute Neuts (auto) Neutrophils % Lymphocytes % Monocytes % Eosinophils % Basophils % Nucleated RBC % Platelet Estimate PT with INR INR Sodium 139 Potassium 3.9 Chloride 101 Carbon Dioxide 31 Anion Gap 6 L BUN 16.2 Creatinine 0.8 Est GFR (CKD-EPI)AfAm 97.55 Est GFR (CKD-EPI)NonAf 84.17 Random Glucose 115 H Calcium 9.3 Total Bilirubin 0.3 AST 16 ALT 37 Alkaline Phosphatase 142 H Troponin I < 0.02 B-Natriuretic Peptide 13.0 Total Protein 7.5 Albumin 3.7 Serum , Qual Intake & Output 12/04/18 12/05/18 12/06/18 12/07/18 23:59 23:59 23:59 23:59 Weight 127.006 kg Current Medications Generic Name Dose Route Start Last Admin Trade Name Freq PRN Reason Stop Dose Admin Aspirin 81 mg 12/08/18 10:00 Asa - PO DAILY LISA Atorvastatin Calcium 20 mg 12/07/18 22:00 Lipitor - PO HS LISA Hydrochlorothiazide 25 mg 12/08/18 10:00 Hctz - PO DAILY LISA Valsartan 320 mg 12/08/18 10:00 Diovan - PO DAILY LISA Imaging - Results Chest X-ray: Image Reviewed EKG: Image Reviewed Problem List - Problems (1) Chest pain Assessment/Plan: r/o ACS HEART Score 5 [place] 2 Cardiac Monitoring Appreciate Cardiology consult Serial Enzymes Echo in am Stress Test Continue Asa Lipid panel in am Code(s): R07.9 - CHEST PAIN, UNSPECIFIED (2) HTN (hypertension) Assessment/Plan: stable Monitor BP Telmsartan/HCTZ nf, will start Valsartan, HCTZ Monitor renal function Code(s): I10 - ESSENTIAL (PRIMARY) HYPERTENSION (3) HLD (hyperlipidemia) Code(s): E78.5 - HYPERLIPIDEMIA, UNSPECIFIED (4) Obesity, morbid, BMI 40.0-49.9 Assessment/Plan: s/p Gastric Bypass Low Carb Diet Code(s): E66.01 - MORBID (SEVERE) OBESITY DUE TO EXCESS CALORIES Assessment/Plan This is a 53 y/o woman with a PMHx of Hypertension, Hyperlipidemia s/p Gastric Bypass (25 yrs ago). Placed in Observation for Chest Pain r/o ACS for further evaluation of their emergent condition Plan: See Problem List FEN PO fluids as tolerated Replete lytes prn Low Na, Low Cholesterol Diet DVT ppx OOB SCDs Consider AC if LOS > 48 hrs Dispo: Observation Visit type - Emergency Visit Emergency Visit: Yes ED Registration Date: 12/07/18 Care time: The patient presented to the Emergency Department on the above date and was hospitalized for further evaluation of their emergent condition. - New Patient This patient is new to me today: Yes Date on this admission: 12/08/18 - Critical Care Critical Care patient: No
[2018-12-07] MEDS ORDERED: ATORVASTATIN CA 20 MG TABLET (FP) PO SCH (22:00)
[2018-12-07] MEDS ORDERED: ATORVASTATIN CA 20 MG TABLET (FP) ONE (22:52)
[2018-12-08 02:35] VITALS: BMI 39.5
[2018-12-08 06:58] LABS: BASO % 0.6 % (0-2.0); EOS % 3.9 % (0-4.5); HEMATOCRIT 34.4 % (32.4-45.2); HEMOGLOBIN 10.9 GM/dL (10.7-15.3); LYMPH % 38.4 % (8-40); MCH 26.2 pg (25.7-33.7); MCHC 31.7 g/dl (32.0-36.0); MEAN CELL VOLUME 82.7 fl (80-96); MEAN PLT VOLUME 7.8 fl (7.5-11.1); MONO % 7.2 % (3.8-10.2); NEUT % 49.9 % (42.8-82.8); PLATELET COUNT 327 K/MM3 (134-434); RBC 4.16 M/mm3 (3.60-5.2); RDW 16.2 % (11.6-15.6)
[2018-12-08] MEDS ORDERED: LIDOCAINE HCL 1%, 10 MG/ML (20ML VIAL) ONE (07:12)
[2018-12-08] MEDS ORDERED: BUPIVACAINE HCL/PF 0.5% (5MG/ML) 10 ML VIAL ONE (07:12)
[2018-12-08 07:39] LABS: ANION GAP 7 MMOL/L (8-16); CHLORIDE 102 mmol/L (98-107); CHOLESTEROL 198 mg/dL (50-200); CO2 31 mmol/L (21-32); CREATININE 0.8 mg/dL (0.55-1.3); GLUCOSE,RANDOM 101 mg/dL (74-106); HDL CHOLESTEROL 50 mg/dL (40-60); MAGNESIUM 2.2 mg/dL (1.8-2.4); PHOSPHOROUS 4.9 mg/dL (2.5-4.9); POTASSIUM 4.2 mmol/L (3.5-5.1); SODIUM 140 mmol/L (136-145); TRIGLYCERIDES 80 mg/dL (0-150)
--- NOTE | 2018-12-08 09:22 | PN ---
Progress Note (short form) - Note Progress Note: 53 y.o F well known to me from the office was admitted yesterday to [facility] for observation due to an episode of 30 min SSCP pressure yesterday after eating a hamburger.. The pain resolved after coming to the ER. No N/V. no palpitations or syncope. Her father 2 weeks from cardiac arrest in his 70s and her mom has htn, SEVERE DM and HYPERTHYROIDISM. PMH HTN. EKG c/w incomplete RBBB and ST-T cnanges in 2. 3, F probably due yo LVH. HLD. DM type 2. Due to her obesity the patient had R-Y gastric bypass 12 yrs ago, but regained significant weight after surgery. Vital Signs - 24 hr 12/07/18 12/07/18 12/08/18 18:18 19:30 01:13 Temperature 98.2 F 98.3 F Pulse Rate 83 Pulse Rate [ 77 Right] Respiratory 17 18 Rate Blood Pressure 152/73 Blood Pressure 152/76 [Left Arm] O2 Sat by Pulse 96 99 98 Oximetry (%) 12/08/18 12/08/18 01:55 05:00 Temperature 98.2 F Pulse Rate 75 63 Pulse Rate [ Right] Respiratory 20 20 Rate Blood Pressure 120/70 118/72 Blood Pressure [Left Arm] O2 Sat by Pulse 97 Oximetry (%) On PE awake, alert in telemetry , pain free. Seen by cardiology today. TEENA TEJADA. Neck supple, NT, no JVD, no bruits No LN Lungs are clear Heart S1S2 regular, no RMG Abdomen soft, NT, no HSM Ext no CCE Neuro normal, non-focal exam Psych normal Laboratory Results - last 24 hr 12/07/18 12/07/18 12/07/18 18:29 18:29 18:29 WBC 11.3 H RBC 4.42 Hgb 11.7 Hct 36.8 MCV 83.3 MCH 26.5 MCHC 31.8 L RDW 16.3 H Plt Count 371 MPV 7.4 L Absolute Neuts (auto) 6.3 Neutrophils % 55.8 Lymphocytes % 34.8 Monocytes % 5.7 Eosinophils % 3.0 Basophils % 0.7 Nucleated RBC % 0 Platelet Estimate Adequate PT with INR 12.20 INR 1.03 Sodium Potassium Chloride Carbon Dioxide Anion Gap BUN Creatinine Est GFR (CKD-EPI)AfAm Est GFR (CKD-EPI)NonAf Random Glucose Calcium Phosphorus Magnesium Total Bilirubin AST ALT Alkaline Phosphatase Troponin I B-Natriuretic Peptide Total Protein Albumin Triglycerides Cholesterol Total LDL Cholesterol HDL Cholesterol TSH Serum , Qual Negative 12/07/18 12/08/18 12/08/18 18:29 00:10 05:40 WBC 9.0 RBC 4.16 Hgb 10.9 Hct 34.4 MCV 82.7 MCH 26.2 MCHC 31.7 L RDW 16.2 H Plt Count 327 MPV 7.8 Absolute Neuts (auto) 4.5 Neutrophils % 49.9 Lymphocytes % 38.4 Monocytes % 7.2 Eosinophils % 3.9 Basophils % 0.6 Nucleated RBC % 0 Platelet Estimate PT with INR INR Sodium 139 Potassium 3.9 Chloride 101 Carbon Dioxide 31 Anion Gap 6 L BUN 16.2 Creatinine 0.8 Est GFR (CKD-EPI)AfAm 97.55 Est GFR (CKD-EPI)NonAf 84.17 Random Glucose 115 H Calcium 9.3 Phosphorus Magnesium Total Bilirubin 0.3 AST 16 ALT 37 Alkaline Phosphatase 142 H Troponin I < 0.02 < 0.02 B-Natriuretic Peptide 13.0 Total Protein 7.5 Albumin 3.7 Triglycerides Cholesterol Total LDL Cholesterol HDL Cholesterol TSH Serum , Qual 12/08/18 05:40 WBC RBC Hgb Hct MCV MCH MCHC RDW Plt Count MPV Absolute Neuts (auto) Neutrophils % Lymphocytes % Monocytes % Eosinophils % Basophils % Nucleated RBC % Platelet Estimate PT with INR INR Sodium 140 Potassium 4.2 Chloride 102 Carbon Dioxide 31 Anion Gap 7 L BUN 17.0 Creatinine 0.8 Est GFR (CKD-EPI)AfAm 97.55 Est GFR (CKD-EPI)NonAf 84.17 Random Glucose 101 Calcium 9.0 Phosphorus 4.9 Magnesium 2.2 Total Bilirubin AST ALT Alkaline Phosphatase Troponin I < 0.02 B-Natriuretic Peptide Total Protein Albumin Triglycerides 80 Cholesterol 198 Total LDL Cholesterol 135 H HDL Cholesterol 50 TSH 1.77 Serum , Qual Current Active Problems Problem Status Onset Chest pain-CONTRERAS- negative x3 Acute HLD (hyperlipidemia) DM type 2 Acute HTN (hypertension) Acute Obesity, morbid, BMI 40.0-49.9 Acute Current Medications Generic Name Dose Route Start Last Admin Trade Name Freq PRN Reason Stop Dose Admin Aspirin 81 mg 12/08/18 10:00 12/08/18 09:24 Asa - PO 81 mg DAILY LISA Administration Atorvastatin Calcium 20 mg 12/07/18 22:00 12/07/18 22:58 Lipitor - PO 20 mg HS LISA Administration Hydrochlorothiazide 25 mg 12/08/18 10:00 12/08/18 09:24 Hctz - PO 25 mg DAILY LISA Administration Valsartan 320 mg 12/08/18 10:00 12/08/18 09:24 Diovan - PO 320 mg DAILY LISA Administration Plan Continue statins Weight reduction, diet, exercise-will follow as outpatient EST today scheduled. ECHO-pending Case discussed with Dr Escobar.
--- NOTE | 2018-12-08 09:23 | CON.CARD ---
Consult Consult Specialty:: Cardiology Referred by:: Dr. Olson Reason for Consultation:: chest pain - History of Present Illness Chief Complaint: chest tightness History of Present Illness: 53 F HTN, HLD presents with substernal chest tightness at rest while at work yesterday. No ass N/V, SOB. Typically, no exertional CP or SOB. Few years ago, chest pain-----> negative work up. ECG reviewed w/ PMD: chronic NSST changes inferiorly with inc RBBB and LVH - History Source History Provided By: Patient Limitations to Obtaining History: No Limitations - Past Medical History Cardio/Vascular: Yes: HTN, Hyperlipdemia Gastrointestinal: No: Ascites, Cancer, Constipation, Crohn's Disease, Diverticulitis, Diverticulosis, Esophageal Varices, Gastritis, GERD, GI Bleed, Hemorrhoids, Hiatal Hernia, Inflamatory Bowel Disease, Irritable Bowel Disease, Pancreatitis, Peptic Ulcer Disease, Ulcerative Colitis, Other Hepatobiliary: No: Cirrhosis, Cholelithiasis, Cholecystitis, Choledocholithiasis , Hepatitis A, Hepatitis B, Hepatitis C, Other Renal/: No: Renal Failure, Renal Inusuff, BPH, Cancer, Hematuria, Hemodialysis , Neurogenic Bladder, Renal Calculi, UTI, Other ...LMP: 06/27/11 Heme/Onc: No: Anemia, B12 Deficiency, Bleeding Disorder, Cancer, Current Chemotherapy, Current Radiation Therapy, Hemochromatosis, Hypercoaguable State, Myeloproliferative Synd, Sickle Cell Disease, Sickle Cell Trait, Thrombocytopenia, Other Infectious Disease: No: AIDS, C-Diff, Herpes Zoster, HIV, MRSA, STD's, Tuberculosis, VREF, Other Psych: No: Addictions, Anxiety, Bipolar, Depression, Panic, Psychosis, Schizophrenia, Other Musculoskeletal: No: Bursitis, Chronic low back pain, Hemiparesis, Hemiplegia, Osteoarthritis, Paraplegia, Other Rheumatology: No: Fibromyalgia, Gout, Lupus, Rheumatoid Arthritis, Sarcoidosis, Vasculitis, Other ENT: No: Allergic Rhinitis, Sinusitis, Other Endocrine: No: Hung's Disease, Neetu's Disease, Diabetes Insipidus, Diabetes Mellitus, Hyperparathyroidism, Hyperthyroidism, Hypothyroidism, Osteopenia, SIADH, Other Dermatology: No: Basal Cell, Cellulitis, Eczema, Melanoma, Psoriasis, Squamous Cell, Other - Past Surgical History Past Surgical History: Yes: Bariatric Surgery (Gastric Bypass) - Alcohol/Substance Use Hx Alcohol Use: No History of Substance Use: reports: None - Smoking History Smoking history: Never smoked Have you smoked in the past 12 months: No Aproximately how many cigarettes per day: 0 - Social History ADL: Independent History of Recent Travel: No Home Medications - Allergies Allergies/Adverse Reactions: Allergies Allergy/AdvReac Type Severity Reaction Status Date / Time No Known Allergies Allergy Verified 12/07/18 18:17 - Home Medications Home Medications: Ambulatory Orders Olmesartan/Hydrochlorothiazide [Olmesartan-Hctz 40-12.5 mg Tab] 1 each PO DAILY 12/07/18 Telmisartan/Hydrochlorothiazid [Telmisartan-Hctz 80-12.5 mg Tb] 1 each PO DAILY 12/07/18 Family Disease History - Family Disease History Family Disease History: Heart Disease: Father ( cardiac arrest) Review of Systems - Review of Systems Constitutional: reports: No Symptoms Eyes: reports: No Symptoms HENT: reports: No Symptoms Neck: reports: No Symptoms Cardiovascular: reports: Chest Pain Respiratory: reports: No Symptoms Gastrointestinal: reports: No Symptoms Genitourinary: reports: No Symptoms Breasts: reports: No Symptoms Reported Musculoskeletal: reports: No Symptoms Integumentary: reports: No Symptoms Neurological: reports: No Symptoms Endocrine: reports: No Symptoms Hematology/Lymphatic: reports: No Symptoms Psychiatric: reports: No Symptoms - Risk Factors Known Risk Factors: Yes: Hypercholesterolemia, Hypertension Vital Signs: Vital Signs Temperature 98.2 F 12/08/18 01:55 Pulse Rate 63 12/08/18 05:00 Respiratory Rate 20 12/08/18 05:00 Blood Pressure 118/72 12/08/18 05:00 O2 Sat by Pulse Oximetry (%) 97 12/08/18 01:55 Constitutional: Yes: No Distress, Calm Eyes: Yes: Conjunctiva Clear Neck: Yes: Supple Respiratory: Yes: CTA Bilaterally Gastrointestinal: Yes: Soft, Abdomen, Obese, Other (NT) Cardiovascular: Yes: Regular Rate and Rhythm JVD: No Carotid Bruit: No PMI: Non-Displaced Heart Sounds: Yes: S1, S2 (RRR) Edema: No Neurological: Yes: Alert, Oriented - Other Data Labs, Other Data: CBC, BMP 12/08/18 05:40 12/08/18 05:40 INR, PTT INR 1.03 (0.83-1.09) 12/07/18 18:29 Troponin, BNP 12/07/18 12/08/18 12/08/18 18:29 00:10 05:40 Troponin I < 0.02 < 0.02 < 0.02 B-Natriuretic Peptide 13.0 Troponin, BNP 12/07/18 12/08/18 12/08/18 18:29 00:10 05:40 Troponin I < 0.02 < 0.02 < 0.02 B-Natriuretic Peptide 13.0 Laboratory Tests 12/07/18 12/07/18 12/07/18 18:29 18:29 18:29 WBC Hgb Plt Count INR 1.03 Sodium Potassium Creatinine Magnesium Troponin I < 0.02 Triglycerides HDL Cholesterol Serum , Qual Negative 12/08/18 12/08/18 12/08/18 00:10 05:40 05:40 WBC 9.0 Hgb 10.9 Plt Count 327 INR Sodium 140 Potassium 4.2 Creatinine 0.8 Magnesium 2.2 Troponin I < 0.02 < 0.02 Triglycerides 80 HDL Cholesterol 50 Serum , Qual NSR, inc RBBB Chronic NSST changes inferiorly Echo: Pending Assessment/Plan IMP: 1. Chronically abnl ECG 2. Several CV risk factors: HTN/HLD 3. Atypical CP REC: 1. ASA 2. For echo for EF assessment, followed by exercise MPI today for further CV risk stratification (ETT alone not sufficient given risk factors and baseline ST abnormalities). 3. If above WNL, plan for d/c later today Will follow Thanks
--- NOTE | 2018-12-08 09:31 | DS ---
Physical Examination Vital Signs: Vital Signs Temperature 98.2 F 12/08/18 01:55 Pulse Rate 63 12/08/18 05:00 Respiratory Rate 20 12/08/18 05:00 Blood Pressure 118/72 12/08/18 05:00 O2 Sat by Pulse Oximetry (%) 97 12/08/18 01:55 Constitutional: Yes: No Distress Eyes: Yes: Conjunctiva Clear, EOM Intact HENT: Yes: Atraumatic, Normocephalic Neck: Yes: Supple, Trachea Midline Cardiovascular: Yes: Regular Rate and Rhythm, Varicosities Respiratory: Yes: CTA Bilaterally Gastrointestinal: Yes: Normal Bowel Sounds, Soft, Abdomen, Obese. No: Ascites ...Rectal Exam: Yes: Deferred Renal/: No: Anuria Breast(s): Yes: WNL Extremities: Yes: WNL Edema: No Peripheral Pulses WNL: Yes Integumentary: Yes: WNL Neurological: Yes: WNL ...Motor Strength: WNL Psychiatric: Yes: WNL Labs: CBC, BMP 12/08/18 05:40 12/08/18 05:40 Laboratory Results - last 24 hr 12/07/18 12/07/18 12/07/18 18:29 18:29 18:29 WBC 11.3 H RBC 4.42 Hgb 11.7 Hct 36.8 MCV 83.3 MCH 26.5 MCHC 31.8 L RDW 16.3 H Plt Count 371 MPV 7.4 L Absolute Neuts (auto) 6.3 Neutrophils % 55.8 Lymphocytes % 34.8 Monocytes % 5.7 Eosinophils % 3.0 Basophils % 0.7 Nucleated RBC % 0 Platelet Estimate Adequate PT with INR 12.20 INR 1.03 Sodium Potassium Chloride Carbon Dioxide Anion Gap BUN Creatinine Est GFR (CKD-EPI)AfAm Est GFR (CKD-EPI)NonAf Random Glucose Calcium Phosphorus Magnesium Total Bilirubin AST ALT Alkaline Phosphatase Troponin I B-Natriuretic Peptide Total Protein Albumin Triglycerides Cholesterol Total LDL Cholesterol HDL Cholesterol TSH Serum , Qual Negative 12/07/18 12/08/18 12/08/18 18:29 00:10 05:40 WBC 9.0 RBC 4.16 Hgb 10.9 Hct 34.4 MCV 82.7 MCH 26.2 MCHC 31.7 L RDW 16.2 H Plt Count 327 MPV 7.8 Absolute Neuts (auto) 4.5 Neutrophils % 49.9 Lymphocytes % 38.4 Monocytes % 7.2 Eosinophils % 3.9 Basophils % 0.6 Nucleated RBC % 0 Platelet Estimate PT with INR INR Sodium 139 Potassium 3.9 Chloride 101 Carbon Dioxide 31 Anion Gap 6 L BUN 16.2 Creatinine 0.8 Est GFR (CKD-EPI)AfAm 97.55 Est GFR (CKD-EPI)NonAf 84.17 Random Glucose 115 H Calcium 9.3 Phosphorus Magnesium Total Bilirubin 0.3 AST 16 ALT 37 Alkaline Phosphatase 142 H Troponin I < 0.02 < 0.02 B-Natriuretic Peptide 13.0 Total Protein 7.5 Albumin 3.7 Triglycerides Cholesterol Total LDL Cholesterol HDL Cholesterol TSH Serum , Qual 12/08/18 05:40 WBC RBC Hgb Hct MCV MCH MCHC RDW Plt Count MPV Absolute Neuts (auto) Neutrophils % Lymphocytes % Monocytes % Eosinophils % Basophils % Nucleated RBC % Platelet Estimate PT with INR INR Sodium 140 Potassium 4.2 Chloride 102 Carbon Dioxide 31 Anion Gap 7 L BUN 17.0 Creatinine 0.8 Est GFR (CKD-EPI)AfAm 97.55 Est GFR (CKD-EPI)NonAf 84.17 Random Glucose 101 Calcium 9.0 Phosphorus 4.9 Magnesium 2.2 Total Bilirubin AST ALT Alkaline Phosphatase Troponin I < 0.02 B-Natriuretic Peptide Total Protein Albumin Triglycerides 80 Cholesterol 198 Total LDL Cholesterol 135 H HDL Cholesterol 50 TSH 1.77 Serum , Qual Discharge Summary Reason For Visit: CHEST PAIN, HTN, DM 2, OBESETY Current Active Problems Chest pain (Acute) HLD (hyperlipidemia) (Acute) HTN (hypertension) (Acute) Obesity, morbid, BMI 40.0-49.9 (Acute) Condition: Stable - Instructions Disposition: HOME - Home Medications Comprehensive Discharge Medication List: Ambulatory Orders Olmesartan/Hydrochlorothiazide [Olmesartan-Hctz 40-12.5 mg Tab] 1 each PO DAILY 12/07/18 Telmisartan/Hydrochlorothiazid [Telmisartan-Hctz 80-12.5 mg Tb] 1 each PO DAILY 12/07/18 Aspirin [ASA -] 81 mg PO DAILY tab.chew 12/08/18 Atorvastatin Ca [Lipitor] 20 mg PO HS tablet 12/08/18
[2018-12-08] MEDS ORDERED: VALSARTAN 160 MG TABLET (UD) PO SCH (10:00)
[2018-12-08] MEDS ORDERED: HYDROCHLOROTHIAZIDE 25 MG TABLET (FP) PO SCH (10:00)
[2018-12-08] MEDS ORDERED: ASPIRIN 81 MG CHEWABLE TABLETS PO SCH (10:00)
--- NOTE | 2018-12-08 10:33 | ECHO ---
Name: POLINA OCHOA Exam:Adult Echocardiogram Study Date: 12/08/2018 09:58 AM Age: 53 yrs Reason For Study: Chest pain Height: 70 in Weight: 280 lb BSA: 2.4 m2 MMode/2D Measurements & Calculations IVSd: 1.1 cm Ao root diam: 2.9 cm LVIDd: 5.3 cm LA dimension: 3.7 cm LVIDs: 3.4 cm LVPWd: 0.99 cm EDV(Teich): 138.2 ml LVOT diam: 2.0 cm ESV(Teich): 47.3 ml LAV (MOD-bp): 52.0 ml Doppler Measurements & Calculations MV E max john: 60.7 cm/sec Ao V2 max: 177.8 cm/sec MV A max john: 93.3 cm/sec Ao max P.6 mmHg MV E/A: 0.65 MV dec time: 0.20 sec MAGDALENA(V,D): 1.7 cm2 LV V1 max P.4 mmHg MR max john: 337.5 cm/sec LV V1 max: 92.3 cm/sec MR max P.6 mmHg TR max john: 208.5 cm/sec PA V2 max: 86.9 cm/sec TR max P.8 mmHg PA max P.0 mmHg PI end-d john: 82.8 cm/sec Med Peak E' John: 7.4 cm/sec Med E/e': 8.2 Lat Peak E' John: 7.7 cm/sec Lat E/e': 7.9 Left Ventricle There is borderline concentric left ventricular hypertrophy. Ejection Fraction = 55-60%. The transmit ral spectral Doppler flow pattern is suggestive of impaired LV relaxation. Right Ventricle The right ventricle is normal in size and function. Atria The left atrium is mildly dilated. Right atrial size is normal. Mitral Valve The mitral valve is normal in structure and function. There is no mitral valve stenosis. There is tra ce mitral regurgitation. Tricuspid Valve The tricuspid valve is normal in structure and function. There is trace tricuspid regurgitation. Aortic Valve The aortic valve is trileaflet. No hemodynamically significant valvular aortic stenosis. No aortic regurgitation is present. Pulmonic Valve The pulmonic valve is not well seen, but is grossly normal. There is no pulmonic valvular stenosis. T race pulmonic valvular regurgitation. Great Vessels The aortic root is normal size. Pericardium/Pleura There is no pericardial effusion. Interpretation Summary There is borderline concentric left ventricular hypertrophy. Ejection Fraction = 55-60%. The transmitral spectral Doppler flow pattern is suggestive of impaired LV relaxation. The right ventricle is normal in size and function. The left atrium is mildly dilated. The aortic root is normal size. There is no pericardial effusion. MD Sharma *Tray 12/08/2018 10:32 AM
--- NOTE | 2018-12-08 11:47 | EKG ---
Test Reason : Blood Pressure : / mmHG Vent. Rate : 090 BPM Atrial Rate : 090 BPM P-R Int : 156 ms QRS Dur : 112 ms QT Int : 380 ms P-R-T Axes : 061 066 004 degrees QTc Int : 464 ms NORMAL SINUS RHYTHM POSSIBLE LEFT ATRIAL ENLARGEMENT INCOMPLETE RIGHT BUNDLE BRANCH BLOCK LEFT VENTRICULAR HYPERTROPHY MARKED ST ABNORMALITY, POSSIBLE INFERIOR SUBENDOCARDIAL INJURY ABNORMAL ECG Confirmed by TRAMAINE CARDENAS MD ([id number]) on 12/08/2018 11:46:39 AM Referred By: Confirmed By:TRAMAINE CARDENAS MD
[2018-12-08 15:54] VITALS: BP 128/73; PULSE 83; TEMP 98.1
== END 2018-12-08 18:44 | disposition home or self-care (01) ==
LOC: JER 17:31 → JERBED 19:43 → J4W 12-08 02:12
PROVIDERS: ADMIT Internal Medicine; ATTEND Internal Medicine
PROC: 3E033GC Introduction of Other Therapeutic Substance into Peripheral Vein, Percutaneous Approach (ICD-10-PCS; principal; 2018-12-07)
DX: R07.9 Chest pain, unspecified (principal); I10 Essential (primary) hypertension; E78.5 Hyperlipidemia, unspecified; E66.01 Morbid (severe) obesity due to excess calories; Z68.39 Body mass index [BMI] 39.0-39.9, adult; R94.31 Abnormal electrocardiogram [ECG] [EKG]
CPT/HCPCS: 36415; 71045-TC-FY; 78452-TC; 80048; 80053; 80061; 83036; 83721; 83735; 83880; 84100; 84443; 84484; 84703; 85025; 85610; 93005; 93010; 93017; 93306-TC; 99284-25; A9502; G0378

== ENCOUNTER 2021-02-09 13:46 | Emergency (ER) | payer BC, OTHER ==
[2021-02-09 13:52] VITALS: BMI 39.4
[2021-02-09] MEDS ORDERED: CASIRIVIMAB/IMDEVIMAB 10 ML in SODIUM CHLORIDE 100 ML IVPB ONE (14:25)
[2021-02-09 17:31] VITALS: BP 116/65; PULSE 88; TEMP 98
== END 2021-02-09 18:37 | disposition home or self-care (01) ==
LOC: JCOVINFU 13:46
DX: U07.1 COVID-19 (principal)
CPT/HCPCS: 71046-TC-FY; 99284-25; M0240; Q0240

== ENCOUNTER → 2023-03-31 | Day surgery (SDC) | payer BC | END | disposition home or self-care (01) | LOC: FMAMMOTONE 09:57 | PROVIDERS: ATTEND Internal Medicine | PROC: 0HBT3ZX Excision of Right Breast, Percutaneous Approach, Diagnostic (ICD-10-PCS; principal; 2023-03-31) | DX: D05.11 Intraductal carcinoma in situ of right breast (principal); N60.11 Diffuse cystic mastopathy of right breast; N64.89 Other specified disorders of breast | CPT/HCPCS: 19081; 76098-TC-FY; 87899; 88305-TC; 88341-TC; 88342-TC; A4648 ==

== ENCOUNTER → 2023-04-18 | Day surgery (SDC) | payer BC | END | disposition home or self-care (01) | LOC: JMAMMO-SUR 09:23 → FRADUS-SUR 09:23 | PROVIDERS: ATTEND Surgery Surgical Oncology | PROC: BH00ZZZ Plain Radiography of Right Breast (ICD-10-PCS; principal; 2023-04-18) | DX: D05.11 Intraductal carcinoma in situ of right breast (principal) | CPT/HCPCS: 19281; A4648 ==

== ENCOUNTER 2023-04-20 04:47 | Day surgery (SDC) | payer BC ==
[2023-04-15 17:48] VITALS: BMI 38.0
[2023-04-20] MEDS ORDERED: BUPIVACAINE HCL/PF 0.5% (5MG/ML) 10 ML VIAL ONE (07:21)
[2023-04-20] MEDS ORDERED: PROPOFOL 40 ML ONE ×2 (07:22→08:25)
[2023-04-20] MEDS ORDERED: FENTANYL CITRATE/PF 50 MCG/ML VIAL ONE ×3 (07:22→09:20)
[2023-04-20] MEDS ORDERED: MIDAZOLAM HCL 2 MG/2 ML SINGLE DOSE VIAL ONE (07:23)
[2023-04-20] MEDS ORDERED: LIDOCAINE HCL/PF 2% SDV 5ML VIAL ONE (07:26)
[2023-04-20] MEDS ORDERED: ceFAZolin SODIUM 1 GM VIAL ONE ×2 (07:26)
[2023-04-20] MEDS ORDERED: SODIUM CHLORIDE 0.9% P/F 10 ML VIAL IJ ONE (07:26)
[2023-04-20] MEDS ORDERED: DEXAMETHASONE SOD PHOSPHATE 4 MG/1 ML VIAL ONE (07:26)
[2023-04-20] MEDS ORDERED: ONDANSETRON 4 MG/2 ML VIAL ONE (07:26)
[2023-04-20] MEDS ORDERED: BUPIVACAINE HCL/PF 0.25% (2.5MG/ML) 10 ML VIAL IJ ONE (08:39)
[2023-04-20] MEDS ORDERED: oxyCODONE HCL 5 MG TABLET PO PRN (09:03)
[2023-04-20] MEDS ORDERED: LACTATED RINGERS SOLUTION 1,000 ML IV SCH (09:15)
[2023-04-20] MEDS ORDERED: ACETAMINOPHEN 1000 MG/100 ML BAG IVPB ONE (09:17)
[2023-04-20 10:37] VITALS: RESP 20; TEMP 97.3
[2023-04-20 12:14] VITALS: BP 119/68; PULSE 62
== END 2023-04-20 12:03 | disposition home or self-care (01) ==
LOC: JASU-SURG 04:47
PROVIDERS: ATTEND Surgery Surgical Oncology
PROC: 0HBT0ZZ Excision of Right Breast, Open Approach (ICD-10-PCS; principal; 2023-04-20 08:00)
DX: D05.11 Intraductal carcinoma in situ of right breast (principal)
CPT/HCPCS: 76098-TC-FY; 88307-TC; 88342-TC; 94760

== ENCOUNTER 2023-06-08 04:21 | Day surgery (SDC) | payer BC ==
[2023-06-08 12:22] VITALS: BMI 38.0
[2023-06-08] MEDS ORDERED: BUPIVACAINE HCL/PF 0.5% (5MG/ML) 10 ML VIAL ONE (13:09)
[2023-06-08] MEDS ORDERED: PROPOFOL 20 ML ONE (13:58)
[2023-06-08] MEDS ORDERED: MIDAZOLAM HCL 2 MG/2 ML SINGLE DOSE VIAL ONE ×2 (14:00→14:10)
[2023-06-08] MEDS ORDERED: LIDOCAINE 1%/EPI 1:100000 (20 ML MULTI DOSE VIAL) IJ ONE (14:10)
[2023-06-08] MEDS ORDERED: BUPIVACAINE HCL/PF 0.5% (5MG/ML) 10 ML VIAL IJ ONE (14:11)
[2023-06-08] MEDS ORDERED: oxyCODONE HCL 5 MG TABLET PO PRN (14:38)
[2023-06-08] MEDS ORDERED: ONDANSETRON 4 MG/2 ML VIAL IVPUSH PRN (14:38)
[2023-06-08] MEDS ORDERED: LACTATED RINGERS SOLUTION 1,000 ML IV SCH (14:45)
[2023-06-08 16:05] VITALS: RESP 20
[2023-06-08 19:13] VITALS: PULSE 73; TEMP 97.8
[2023-06-08 19:15] VITALS: BP 125/62
== END 2023-06-08 16:57 | disposition home or self-care (01) ==
LOC: JASU-SURG 04:21
PROVIDERS: ATTEND Surgery Surgical Oncology
PROC: 0HBT0ZZ Excision of Right Breast, Open Approach (ICD-10-PCS; principal; 2023-06-08 14:00)
DX: D05.11 Intraductal carcinoma in situ of right breast (principal); N64.1 Fat necrosis of breast; L90.5 Scar conditions and fibrosis of skin
CPT/HCPCS: 88307-TC; 94760